=== PATIENT | male | born 1990 | race Hispanic/Latino ===

== ENCOUNTER 2017-12-12 12:56 | Emergency (ER) | payer OTHER ==
[~2017-12-12] VITALS: Ht 188 cm; Wt 86.6 kg
[2017-12-12 13:04] VITALS: BP 133/89
[2017-12-12] MEDS ORDERED: PROAIR HFA8.5 GM INH (15:01)
[2017-12-12] MEDS ORDERED: PREDNISONE50 M1 PO (15:01)
--- NOTE | 2017-12-12 15:02 | ED SKIN/ALLERGY COMPLAINT ---
History of Present Illness General Chief Complaint: General Adult Stated Complaint: ?ALLERGIC REACTION TO ELECTRONIC CIGARETTE Source: patient Exam Limitations: no limitations Vital Signs & Intake/Output Vital Signs & Intake/Output ED Intake and Output 12/13 0000 12/12 1200 Intake Total Output Total Balance Patient 191 lb Weight Weight Standing Scale Measurement Method Allergies Coded Allergies: NO KNOWN ALLERGIES (08/23/12) Reconcile Medications Albuterol Sulfate (Proair Hfa) 90 MCG HFA.AER.AD 2 PUF INH Q4-6 PRN PRN WHEEZING /COUGH Prednisone 50 MG TABLET 1 TAB PO DAILY BRONCHITIS Triage Note: PT STATES SHE BOUGHT AN ELECTRONIC CIGARETTE AND USED IT ONE TIME AND HIS FACE BEGAN TO GET SWOLLEN. PT REPORTS THIS HAPPEND LAST EVENING BUT STATES THE RIGHT SIDE OF HIS FACE IS SWOLLEN. Triage Nurses Notes Reviewed? yes Onset: Abrupt Duration: day(s): (1-2), better, continues in ED Timing: single episode today Severity: mild, moderate Location: face Possible Factors: exposure to allergen No Modifying Factors: none Associated Symptoms: swelling/mass/lumps HPI: 27 showed male with no past medical history presents for evaluation of facial swelling. Patient states that he has been trying to quit smoking and uses an electronic cigarette last night for the first time. He states when he woke up this morning his face was swollen. He feels like the swelling has gone down somewhat but is still present. Denies any rashes swelling of the lips tongue or throat difficulty breathing or difficulty swallowing. He does report that he has had a cough congestion and rhinorrhea and wheezing over the past several weeks. No fevers hemoptysis chest pain or shortness of breath. Past History Travel History Traveled to [place] past 21 day No Medical History Any Pertinent Medical History? 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 No Review of Systems Review of Systems Constitutional: Reports: no symptoms. EENTM: Reports: nasal congestion. Respiratory: Reports: see HPI, cough, short of breath, wheezing. Cardiovascular: Reports: no symptoms. GI: Reports: no symptoms. Genitourinary: Reports: no symptoms. Musculoskeletal: Reports: no symptoms. Skin: Reports: no symptoms. Neurological/Psychological: Reports: no symptoms. Hematologic/Endocrine: Reports: no symptoms. Immunologic/Allergic: Reports: no symptoms. All Other Systems: Reviewed and Negative Physical Exam Physical Exam General Appearance: well developed/nourished, no apparent distress, alert, awake Head: atraumatic, normal appearance Eyes: Bilateral: normal appearance, PERRL, EOMI. Ears, Nose, Throat: normal pharynx, normal ENT inspection, hearing grossly normal Neck: normal inspection, supple, full range of motion Respiratory: chest non-tender, no respiratory distress, wheezing (mild ) Cardiovascular: regular rate/rhythm, normal peripheral pulses Peripheral Pulses: 2+ radial (R), 2+ radial (L) Gastrointestinal: soft, non-tender Back: normal inspection, normal range of motion, no vertebral tenderness Extremities: normal inspection, normal range of motion, no edema Neurologic/Psych: no motor/sensory deficits, awake, alert, oriented x 3, normal gait, normal mood/affect Skin: intact, normal color, warm/dry Skin Problem Location: face Skin Problem Character: swelling Lymphatic: no anterior cervical josé antonio Progress Differential Diagnosis: allergic reaction, anaphylaxis, angioedema, asthma, contact dermatitis, drug reaction, urticaria Plan of Care: pt seen and evaluated. no resp distress. no rash. no hypoxia. quit smoking. proair inhaler prednisone 50mg x5 days. follow up with pcp. discussed return rpecautions pt is non-toxic appearing no distress. he agrees. Departure Departure Disposition: HOME OR SELF CARE Condition: Stable Clinical Impression Primary Impression: Acute bronchitis Qualifiers: Bronchitis organism: unspecified organism Qualified Code: J20.9 - Acute bronchitis, unspecified Secondary Impressions: Allergic reaction Qualifiers: Encounter type: initial encounter Qualified Code: T78.40XA - Allergy, unspecified, initial encounter Referrals: Patient Has No Primary Care Dr (PCP/Family) Additional Instructions: Take prednisone as directed for the full course. Use pro-air inhaler 2 puffs every 4-6 hours as needed for cough or shortness of breath. Follow-up with YOUR primary care doctor as soon as possible. Monitor symptoms return with any concerns. Departure Forms: Customer Survey General Discharge Information Prescriptions: Current Visit Scripts Prednisone 1 TAB PO DAILY #5 TAB Albuterol Sulfate (Proair Hfa) 2 PUF INH Q4-6 PRN PRN WHEEZING /COUGH #1 INHAL
== END 2017-12-12 15:09 ==
LOC: ERH 12:56
DX: T78.40XA Allergy, unspecified, initial encounter (principal); J20.9 Acute bronchitis, unspecified; Z72.0 Tobacco use